=== PATIENT | male | born 1940 | race Caucasian/White ===

== ENCOUNTER 2016-08-25 10:14 | Inpatient (IN) | payer MEDICARE, OTHER ==
[2016-08-25 10:31] LABS: BASOPHIL 0.2 % (0-2); EOSINOPHIL 3.6 % (0-7); HGB 17.6 g/dl (13.2-18.0); LYMPHOCYTE 24.8 % (15-48); MCH 31.4 pg (25.0-31.0); MCHC 34.5 g/dL (32.0-36.0); MCV 90.9 fL (78.0-100.0); MONOCYTE 7.7 % (0-12); MPV 10.2 fL (6.0-9.5); NEUTROPHIL 63.7 % (41-80); PLT 232 K/uL (150-400); RBC 5.61 M/uL (4.70-6.00); RDW 14.7 % (11.5-14.0); WBC 8.3 K/uL (4.0-10.5)
[2016-08-25 10:42] LABS: INR 1.03 (0.9-1.2); PROTHROMBIN TIME 13.1 SECONDS (11.7-14.0); PTT 24.9 SECONDS (23.2-31.4)
[2016-08-25 10:51] LABS: ALBUMIN 4.8 g/dL (3.4-4.8); BILIRUBIN - TOTAL 1.2 mg/dL (0.1-1.0); CREATININE 0.8 mg/dL (0.7-1.2); GLOBULIN (CALCULATION) 2.3 g/dL (2.2-4.2); MAGNESIUM 1.17 mg/dL (1.40-2.10); POTASSIUM 4.2 mmol/L (3.5-5.1); TOTAL PROTEIN 7.1 g/dL (6.4-8.3)
[2016-08-25 10:52] LABS: MYOGLOBIN 130 ng/mL (26-65); PRO-BNP 141 pg/mL (0-450); TROPONIN T < 0.010 ng/mL
[2016-08-25 10:53] LABS: CKMB 7.92 ng/mL (0.97-4.94)
[2016-08-25 17:08] LABS: CKMB 35.65 ng/mL (0.97-4.94); TROPONIN T 0.408 ng/mL
[2016-08-25 23:04] LABS: CKMB 41.47 ng/mL (0.97-4.94); TROPONIN T 1.07 ng/mL
[2016-08-26 02:53] LABS: CKMB 34.26 ng/mL (0.97-4.94); TROPONIN T 1.04 ng/mL
[2016-08-26 06:35] LABS: BASOPHIL 0.1 % (0-2); EOSINOPHIL 0.1 % (0-7); HCT 46.1 % (42.0-52.0); LYMPHOCYTE 11.9 % (15-48); MCH 31.5 pg (25.0-31.0); MCHC 34.7 g/dL (32.0-36.0); MCV 90.7 fL (78.0-100.0); MONOCYTE 1.6 % (0-12); MPV 10.3 fL (6.0-9.5); NEUTROPHIL 86.3 % (41-80); PLT 271 K/uL (150-400); RBC 5.08 M/uL (4.70-6.00); RDW 14.7 % (11.5-14.0); WBC 11.7 K/uL (4.0-10.5)
[2016-08-26 06:58] LABS: CKMB 33.02 ng/mL (0.97-4.94); TROPONIN T 0.982 ng/mL
[2016-08-26 06:59] LABS: CREATININE 1.4 mg/dL (0.7-1.2); POTASSIUM 5.3 mmol/L (3.5-5.1)
[2016-08-27 05:35] LABS: CREATININE 1.2 mg/dL (0.7-1.2); POTASSIUM 4.6 mmol/L (3.5-5.1)
== END 2016-08-27 07:40 | disposition other institution (70) | DRG 281 ==
LOC: FER 10:14 → FTCU 13:58
PROVIDERS: Internal Medicine; Internal Medicine Cardiovascular Disease; ADMIT Internal Medicine
DX: I21.4 Non-ST elevation (NSTEMI) myocardial infarction (principal); J44.0 Chronic obstructive pulmonary disease with (acute) lower respiratory infection; E11.9 Type 2 diabetes mellitus without complications; J20.9 Acute bronchitis, unspecified; J45.909 Unspecified asthma, uncomplicated; I25.10 Atherosclerotic heart disease of native coronary artery without angina pectoris; E78.5 Hyperlipidemia, unspecified; I10 Essential (primary) hypertension; Z88.8 Allergy status to other drugs, medicaments and biological substances; Z87.891 Personal history of nicotine dependence; Z82.49 Family history of ischemic heart disease and other diseases of the circulatory system; Z80.9 Family history of malignant neoplasm, unspecified; Z85.118 Personal history of other malignant neoplasm of bronchus and lung; Z90.2 Acquired absence of lung [part of]; Z85.47 Personal history of malignant neoplasm of testis; Z90.79 Acquired absence of other genital organ(s)
CPT/HCPCS: 36415; 71010; 80048; 80053; 80061; 82550; 82553; 82962; 83735; 83874; 83880; 84484; 85025; 85610; 85730; 87070; 87077; 87186; 87205; 93005; 94010; 94640; 96372; G0378; J0456; J2930